=== PATIENT | female | born 1955 | race Caucasian/White ===

== ENCOUNTER 2018-10-16 10:58 | Emergency (ER) | payer OTHER ==
[~2018-10-16] VITALS: Ht 162.6 cm; Wt 81.3 kg
[2018-10-16 11:01] VITALS: BP 194/96; PULSE 76; RESP 18; Ht 162.6 cm; Wt 81.3 kg
--- NOTE | 2018-10-16 12:17 | ERD ---
ER Documentation Chief Complaint Chief Complaint frequency of urination , lt flank pain , onset last night HPI 63-year-old female, with history of hypertension, presents to the emergency de partment, complaining of 1 week with increased urinary frequency, associated with dysuria and left pelvic pain since last night. The patient has been taking Tylenol with mild improvement of the symptoms. She denies fevers, no chills, no rashes, no nausea or vomiting. She is also requesting a refill for quinapril. ROS All systems reviewed and are negative except as per history of present illness. Medications Home Meds Active Scripts Quinapril Hcl (Quinapril Hcl) 20 Mg Tablet, 20 MG PO BID, #60 TAB Prov:ANAYA DAVILA MD 10/16/18 Phenazopyridine Hcl* (Pyridium*) 200 Mg Tab, 200 MG PO TID PRN for URINARY PAIN, #6 TAB Prov:ANAYA DAVILA MD 10/16/18 Ibuprofen* (Motrin*) 400 Mg Tab, 400 MG PO Q6H PRN for PAIN AND OR ELEVATED TEMP, #15 TAB Prov:ANAYA DAVILA MD 10/16/18 Ciprofloxacin Hcl* (Ciprofloxacin Hcl*) 250 Mg Tablet, 250 MG PO BID, #10 TAB Prov:ANAYA DAVILA MD 10/16/18 Allergies Allergies: Coded Allergies: No Known Allergy (Unverified , 10/16/18) PMhx/Soc Medical and Surgical Hx: pt denies Surgical Hx Hx Miscellaneous Medical Probl: Yes (HTN) Hx Alcohol Use: No Hx Substance Use: No Hx Tobacco Use: No Smoking Status: Never smoker FmHx Family History: No diabetes, No coronary disease Physical Exam Vitals Vital Signs Date Temp Pulse Resp B/P (MAP) Pulse Ox O2 O2 Flow FiO2 Time Delivery Rate 10/16/18 98.6 76 18 194/96 98 11:01 (128) Physical Exam Const: No acute distress Head: Atraumatic Eyes: Normal Conjunctiva ENT: Normal External Ears, Nose and Mouth. Neck: Full range of motion. No meningismus. Resp: Clear to auscultation bilaterally Cardio: Regular rate and rhythm, no murmurs Abd: Soft, non tender, non distended. Normal bowel sounds Skin: No petechiae or rashes Back: No midline or flank tenderness Ext: No cyanosis, or edema Neur: Awake and alert Psych: Normal Mood and Affect Results 24 hrs Laboratory Tests Test 10/16/18 12:27 Bedside Urine pH (LAB) 6.0 Bedside Urine Protein (LAB) 1+ Bedside Urine Glucose (UA) Negative Bedside Urine Ketones (LAB) Trace Bedside Urine Blood 2+ Bedside Urine Nitrite (LAB) Negative Bedside Urine Leukocyte Esterase (L Negative Procedures/MDM Differential diagnosis include but not limited to: UTI, colitis, gastroenteritis, kidney stones, irritable bowel syndrome, inflammatory bowel syndrome, malabsorption syndrome, cholelithiasis, food intolerance, medication side effect, pancreatitis, diverticulitis, bowel obstruction. Low suspicion for acute abdomen Physical examination and clinical presentation consistent most likely with acute cystitis. During the ED course the patient remained stable, no new complaints. Results and clinical impression discussed with patient who agrees with management. The patient is stable to be treated outpatient and will be discharged home, some side effects of prescribed medications (headache, rash, nausea, vomiting, diarrhea, drowsiness, habituation, bleeding, hypertension, interactions with other medications) were reviewed. The patient was instructed to follow up with the primary care provider in the next 48h. If symptoms persist, worsen or new symptoms develop, then patient should return to the ED immediately. Instructions explained and given directly by me to the patient with acknowledgment and demonstrated understanding. Disclaimer: Inadvertent spelling and grammatical errors are likely due to EHR/dictation software use and do not reflect on the overall quality of patient care. Also, please note that the electronic time recorded on this note does not necessarily reflect the actual time of the patient encounter. Departure Diagnosis: Primary Impression: Acute cystitis Condition: Stable Additional Instructions: Muchas clary por [facility] para moody servicio. Esperamos que en moody visita a la rebeka de emergencia moody problema medico haya sido solucionado y que se sienta mucho mejor. Para estar seguros que moody mejoria sigue en proceso, le pedimos el favor de hacer kings marly de seguimiento medico con moody doctor primario en los proximos 2-4 torres. Lleve con usted estos documentos y las medicinas recetadas. Si zeb sintomas empeoran, NO SE ESPERE, por favor regrese a rebeka de emergencia INMEDIATAMENTE. En camilla que usted no tenga un mdico de atencin primaria: Llame al mdico o clnica comunitaria de referencia que aparece abajo lakisha las horas de consultorio para hacer kings marly para que le vean. CLINICAS: [facility] [phone] [id number] [facility] [phone] [id number] [facility] [phone] [facility] [phone] [facility] [phone] [id number] [facility]. [phone] ANAYA YANES MD Oct 16, 2018 12:17
[2018-10-16] MEDS ORDERED: IBUP-1561 PO (13:01)
[2018-10-16] MEDS ORDERED: CIPR-193 PO (13:01)
[2018-10-16] MEDS ORDERED: PHEN-538 PO (13:01)
[2018-10-16] MEDS ORDERED: QUIN20TA23 PO (13:04)
== END 2018-10-16 13:54 | disposition home or self-care (01) ==
LOC: FTE 10:58
DX: N30.00 Acute cystitis without hematuria (principal); I10 Essential (primary) hypertension
CPT/HCPCS: 81003; Z7502; 99283

== ENCOUNTER 2018-11-30 20:41 | Emergency (ER) | payer SELFPAY ==
[~2018-11-30] VITALS: Ht 160 cm; Wt 80.5 kg
[~2018-11-30 20:41] MED LIST: CIPR-193 PO; IBUP-1561 PO; PHEN-538 PO; QUIN20TA23 PO
[2018-11-30 21:00] VITALS: BP 202/100; PULSE 75; RESP 18; Ht 160 cm; Wt 80.5 kg
== END 2018-12-01 02:06 | disposition left against medical advice (07) ==
LOC: E/R 20:41
DX: Z53.21 Procedure and treatment not carried out due to patient leaving prior to being seen by health care provider (principal)